=== PATIENT | female | born 1985 | race Two or more races ===

== ENCOUNTER 2023-11-02 18:16 | Emergency (ER) | payer MEDICAID, OTHER ==
[~2023-11-02] VITALS: Ht 167.6 cm; Wt 93.5 kg
[2023-11-02 21:35] VITALS: RESP 16
[2023-11-02 22:10] VITALS: BP 127/88; PULSE 75; TEMP 98.1; O2SAT 99
[2023-11-02] MEDS ORDERED: METH4PAK PO (22:33)
[2023-11-02] MEDS ORDERED: METH-1181 PO (22:33)
== END 2023-11-02 23:04 | disposition home or self-care (01) ==
LOC: EDBD 18:16 → ER 18:16
DX: S33.5XXA Sprain of ligaments of lumbar spine, initial encounter (principal); S76.011A Strain of muscle, fascia and tendon of right hip, initial encounter; Z79.899 Other long term (current) drug therapy; X58.XXXA Exposure to other specified factors, initial encounter; Y93.89 Activity, other specified; Y92.89 Other specified places as the place of occurrence of the external cause; Y99.8 Other external cause status
CPT/HCPCS: 72100; 73502